=== PATIENT | male | born 1965 | race African-American/Black ===

== ENCOUNTER 2023-10-03 12:03 | Emergency (ER) | payer SELFPAY ==
[~2023-10-03] VITALS: Ht 175.3 cm; Wt 104.0 kg
[2023-10-03 12:09] VITALS: O2SAT 99
[2023-10-03] MEDS ORDERED: ELIQUIS (12:09)
[2023-10-03] MEDS ORDERED: AMLODIPINE (12:09)
[2023-10-03] MEDS: SODIUM CHLORIDE 0.9% 1,000 ML IV ONE (12:33)
[2023-10-03 12:59] LABS: CLARITY URINE TURBID (CLEAR); COLOR URINE DARK YELLOW (YELLOW); GLUCOSE URINE NEGATIVE (NEGATIVE); KETONES URINE 1+ (NEGATIVE); LEUKOCYTE ESTERASE URINE TRACE (NEGATIVE); NITRITE URINE NEGATIVE (NEGATIVE); OCCULT BLOOD URINE NEGATIVE (NEGATIVE); PH URINE 5.5 (4.5-8.0); PROTEIN URINE 3+ (NEGATIVE); SPECIFIC GRAVITY URINE 1.023 (1.005-1.030)
[2023-10-03 13:18] LABS: AMORPHOUS SEDIMENT URINE 2+ /lpf; BACTERIA URINE 1+; SQUAMOUS EPITHELIAL CELL URINE NONE SEEN /lpf (RARE/1+); YEAST URINE NONE SEEN
[2023-10-03 14:10] LABS: BASOPHILS % 0.4 % (0.0-2.0); EOSINOPHILS % 2.1 % (0.0-5.0); HEMATOCRIT. 38.8 % (42.0-52.0); HEMOGLOBIN. 13.1 g/dL (14.0-18.0); LYMPHOCYTES % 10.1 % (20.0-50.0); MEAN CORPUSCULAR HEMOGLOBIN 29.6 pg (28.0-32.0); MEAN CORPUSCULAR HGB CONC 33.7 g/dL (31.0-37.0); MEAN CORPUSCULAR VOLUME 87.6 fL (80.0-94.0); MEAN PLATELET VOLUME 9.3 fl (7.4-10.4); MONOCYTES % 11.3 % (2.0-8.0); NEUTROPHILS % 76.1 % (40.0-76.0); PLATELET 234 x1000/uL (130-400); RED BLOOD CELL COUNT 4.43 mill/uL (4.7-6.1); RED CELL DISTRIBUTION WIDTH 14.7 % (11.6-14.6); WHITE BLOOD COUNT 7.2 x1000/uL (4.5-11.0)
[2023-10-03 14:14] LABS: CHLORIDE 106 mEq/L (98-107); POTASSIUM 4.6 mEq/L (3.5-5.1); SODIUM 138 mEq/L (136-145)
[2023-10-03 14:15] LABS: CARBON DIOXIDE 26 mEq/L (21-32)
[2023-10-03 14:16] LABS: CALCIUM 9.2 mg/dL (8.7-10.4)
[2023-10-03 14:19] LABS: D-DIMER 1.22 mg/L FEU (<0.50); INR 1.1; PROTHROMBIN TIME 11.8 sec (9.6-11.0)
[2023-10-03 14:20] LABS: CREATININE 1.3 mg/dL (0.6-1.3); GLUCOSE 87 mg/dL (70-105); UREA NITROGEN BLOOD 16 mg/dL (9-23)
[2023-10-03 14:22] LABS: CREATINE KINASE 325 IU/L (46-171)
[2023-10-03 14:28] LABS: TROPONIN I HIGH SENSITIVITY < 4 ng/L (3.0-53)
[2023-10-03 15:00] VITALS: BP 121/71; PULSE 71; RESP 22; TEMP 98.7
[2023-10-03] MEDS ORDERED: IOHEXOL-350 100 ML BOTTLE ONE ×2 (15:25→23:22)
[2023-10-03 16:22] LABS: TROPONIN I HIGH SENSITIVITY < 4 ng/L (3.0-53)
== END 2023-10-03 16:26 | disposition left against medical advice (07) ==
LOC: ER 12:40
DX: R55 Syncope and collapse (principal); I10 Essential (primary) hypertension; Z98.890 Other specified postprocedural states
CPT/HCPCS: 99285; 96360; 71275; 71045; 80048; 81003; 82550; 85025; 85379; 85610; 84484; 36415; 93005; Q9967; J7030